=== PATIENT | male | born 1995 | race African-American/Black ===

== ENCOUNTER 2020-05-02 11:49 | Emergency (ER) | payer MEDICAID ==
[~2020-05-02] VITALS: Ht 172.7 cm; Wt 62.6 kg
[~2020-05-02 11:49] MED LIST: COLACE100 MG ORAL; IBUPROFEN600 MG ORAL; KEFLEX500 MG ORAL; NKM; NORCO 5-325 TA1 EACH ORAL
--- NOTE | 2020-05-02 11:59 | NUR ---
ED Nurse Note: Pt limped to ed c/o left knee pain s/p injury from basketball x2 weeks ago. pt unable to bear weight on area. visible swellng present.
[2020-05-02] MEDS ORDERED: Methocarbamol 500mg tab ORAL ONE (12:08)
[2020-05-02] MEDS ORDERED: Methocarbamol 750mg tab ORAL ONE (12:15)
[2020-05-02] MEDS ORDERED: ROBAXIN-500MG ORAL (12:32)
[2020-05-02] MEDS ORDERED: IBUPROFEN600 M1 ORAL (12:32)
--- NOTE | 2020-05-02 12:32 | Emergency Room Report ---
History of Present Illness General Chief Complaint: Lower Extremity Injury Present Illness HPI 24-year-old male with no symptom past medical history here complaining of 2 weeks of left knee pain. Patient reports that started as he was running, playing basketball and he accidentally twisted his left knee and is been having this popping sensation since. Patient reports that there is some swelling in the medial aspect of left knee. Denies any pain radiation, complains of numbness and intermittent tingling in the affected area. Is able to ambulate. Has not taken medication for symptom relief. Is neurovascularly intact. Denies all other injuries. Denies being on any blood thinners. Allergies: Coded Allergies: No Known Allergies (Unverified , 09/08/12) COVID-19 Screening Contact w/high risk pt: No Experienced COVID-19 symptoms?: No COVID-19 Testing performed COST SPECIALIST: No Patient History Past Medical History: see triage record Past Surgical History: none Pertinent Family History: none Immunizations: UTD Reviewed Nursing Documentation: PMH: Agreed; PSxH: Agreed Nursing Documentation-PMH Hx Cardiac Problems: No - fractured wrist Review of Systems Allergic: Denies: no symptoms, see HPI, urticaria, hay fever, other All Other Systems: negative except mentioned in HPI Physical Exam Vital Signs Date Time Temp Pulse Resp B/P (MAP) Pulse Ox O2 Delivery O2 Flow Rate FiO2 05/02/20 11:55 98.4 62 18 126/79 (95) 95 Room Air Sp02 EP Interpretation: reviewed, normal General Appearance: no apparent distress, alert, GCS 15, non-toxic Head: normocephalic, atraumatic Eyes: bilateral eye normal inspection, bilateral eye PERRL ENT: hearing grossly normal, normal pharynx, no angioedema, normal voice Neck: full range of motion, supple/symm/no masses Respiratory: chest non-tender, lungs clear, normal breath sounds, speaking full sentences Cardiovascular #1: regular rate, rhythm, no edema Cardiovascular #2: 2+ dorsalis pedis (R), 2+ dorsalis pedis (L) Gastrointestinal: normal bowel sounds, non tender, soft, non-distended, no guar ding, no rebound Rectal: deferred Genitourinary: no CVA tenderness Musculoskeletal: back normal, no calf tenderness, pelvis stable, non-tender, swelling - left medial knee Neurologic: alert, motor strength/tone normal, oriented x3, sensory intact, responsive, speech normal Psychiatric: judgement/insight normal, memory normal, mood/affect normal, no suicidal/homicidal ideation Lymphatic: no adenopathy Procedures Splinting Splinting : Consent: Verbal Location: left knee Pre-Made Type: knee immobilizer Pre-Proc Neuro Vasc Exam: normal Post-Proc Neuro Vasc Exam: normal Patient Tolerated: Well Complications: None Medical Decision Making PA Attestation All my diagnosis and treatment plans were reviewed ad discussed with my supervising physician Dr. Bah Diagnostic Impression: Primary Impression: Knee sprain Additional Impression: Knee tendinitis ER Course 24-year-old male with no symptom past medical history here complaining of 2 week s of left knee pain. Patient reports that started as he was running, playing basketball and he accidentally twisted his left knee and is been having this popping sensation since. Patient reports that there is some swelling in the medial aspect of left knee. Denies any pain radiation, complains of numbness and intermittent tingling in the affected area. Is able to ambulate. Has not taken medication for symptom relief. Is neurovascularly intact. Denies all other injuries. Denies being on any blood thinners. Ddx considered but are not limited to: Knee sprain, strain, fracture, contusion, meniscus tear injury Vital signs: are WNL, pt. is afebrile H&PE are most consistent with: left knee sprain, knee tendinitis ORDERS: Knee x-ray, robaxin, motrin ER intervention: robaxin(deferred toradol), knee immobilizer DISCHARGE: At this time pt. is stable for d/c to home. Will provide printed patient care instructions, and any necessary prescriptions. Care plan and follow up instructions have been discussed with the patient prior to discharge. Take medication as directed, follow-up with your primary care provider specialist, MRI reevaluated, if worsening symptoms return to emergency room Other X-Ray Diagnostic Results Other X-Ray Diagnostic Results : X-Ray ordered: left knee # of Views/Limited Vs Complete: 3 View Indication: Pain EP Interpretation: Yes PA Xray: Interpretation reviewed, by supervising MD, and agrees with findings. Interpretation: no dislocation, no soft tissue swelling, no fractures Impression: No acute disease Electronically Signed by: Nuzhat Christianson PA-C Last Vital Signs Date Time Temp Pulse Resp B/P (MAP) Pulse Ox O2 Delivery O2 Flow Rate FiO2 05/02/20 11:55 98.4 62 18 126/79 (95) 95 Room Air Disposition: HOME, SELF-CARE Condition: Stable Scripts Ibuprofen* (MOTRIN*) 600 Mg Tablet 600 MG ORAL Q6H PRN for For Pain, #30 TAB 0 Refills Prov: Nuzhat Rockwell 05/02/20 Methocarbamol* (ROBAXIN-500*) 500 Mg Tablet 500 MG ORAL TID PRN for For Pain, #15 TAB 0 Refills Prov: Nuzhat Rockwell 05/02/20 Referrals: [facility]ERR[facility] (PCP) Patient Instructions: Knee Sprain Additional Instructions: Take medication as directed, follow with your primary care provider for referral to forestry biology specialist, if worsening symptoms return to the emergency room Nuzhat Rockwell May 02, 2020 12:31
--- NOTE | 2020-05-02 12:34 | Diagnostic Imaging Report ---
Indication: Knee pain Technique: XRAY Knee 3v LT Comparison: 3 views of the left knee Findings: Bone mineralization within normal limits. No acute fracture or dislocation is identified. No significant suprapatellar joint effusion. No radiopaque foreign body. Impression: No acute fracture or dislocation.
--- NOTE | 2020-05-02 12:38 | NUR ---
ER DISCHARGE NOTE: Patient is cleared to be discharged per ERMD, pt is aox4, on room air, with stable vital signs. pt was given dc and prescription instructions, pt was able to verbalize understanding, pt id bandremoved. pt is able to ambulate with steady gait. pt took all belongings.
[2020-05-02 12:39] VITALS: BP 125/75
== END 2020-05-02 12:40 | disposition home or self-care (01) ==
LOC: EMR 12:11
DX: S83.92XA Sprain of unspecified site of left knee, initial encounter (principal); M76.9 Unspecified enthesopathy, lower limb, excluding foot; X50.1XXA Overexertion from prolonged static or awkward postures, initial encounter; Y93.67 Activity, basketball; Y92.9 Unspecified place or not applicable
CPT/HCPCS: 73562; Z7502; 99283